=== PATIENT | male | born 1990 | race African-American/Black ===

== ENCOUNTER 2020-12-04 08:18 | Emergency (ER) | payer MEDICAID ==
[~2020-12-04] VITALS: Ht 175.3 cm; Wt 68.0 kg
[2020-12-04] MEDS ORDERED: BICT1TAB PO (08:36)
[2020-12-04] MEDS ORDERED: HYDROCODONE/ACETAMINOPHEN 5/325MG TABLET PO ONE (09:00)
[2020-12-04] MEDS ORDERED: CLIN300C12 MT (09:05)
[2020-12-04 09:24] VITALS: BP 128/86
== END 2020-12-04 09:27 | disposition home or self-care (01) ==
LOC: ER 08:18
DX: K08.89 Other specified disorders of teeth and supporting structures (principal)
CPT/HCPCS: 99283